=== PATIENT | male | born 2000 | race Asian ===

== ENCOUNTER 2020-01-04 02:03 | Emergency (ER) | payer OTHER ==
[2020-01-04 02:35] LABS: Influenza A Molecular Negative (Negative); Influenza B Molecular Negative (Negative)
[2020-01-04] MEDS ORDERED: NS 0.9% 1000 ML** 1,000 ML IV ONE (02:45)
[2020-01-04] MEDS ORDERED: Ondansetron INJ* 2 MG/ML VIAL IV ONE (02:45)
[2020-01-04] MEDS ORDERED: Pantoprazole IV* 40 MG IV ONE (02:47)
[2020-01-04 04:22] LABS: ABS Lymphocytes 0.5 10^3/ul (1.0-4.8); ABS Monocytes 0.3 10^3/ul (0-0.8); ABS Neutrophils 8.2 10^3/ul (1.5-7.7); Eosinophil % 0.2 %; Hematocrit 45 % (42-52); Hemoglobin 15.8 g/dL (14.0-18.0); Lymphocyte % 5.4 %; Mean Corpuscular HGB Conc 35 g/dL (31-36); Mean Corpuscular Hemoglobin 30 pg (27-31); Mean Corpuscular Volume 86 fL (80-94); Mean Platelet Volume 8.3 fL (7.4-10.4); Platelet Count 199 10^3/uL (150-450); Red Blood Count 5.26 10^6 /uL (4.18-5.48); Red Cell Distribution Width 13 % (10-15)
[2020-01-04 04:39] LABS: Albumin 4.4 g/dL (3.2-5.2); Albumin/Globulin Ratio 1.7 (1-3); BUN/Creatinine Ratio 18.9 (8-20); C Reactive Protein 1.77 mg/L (<8.01); Calcium 9.4 mg/dL (8.6-10.3); EGFR African American 131.5 (>60); EGFR Non-African American 108.7 (>60); Globulin 2.6 g/dL (2-4); Potassium 3.8 mmol/L (3.5-5.0); Total Bilirubin 0.8 mg/dL (0.2-1.0)
[2020-01-04 04:56] VITALS: BP 117/63
--- NOTE | 2020-01-04 05:04 | ED ---
Complex/Multi-Sys Presentation - HPI Summary HPI Summary: Patient is a 19 y/o M presenting to [facility] with complaints of N/V, fever, mild abdominal pain, and fatigue. It is reported that the patient experienced onset of vomiting around 2100 01/03/20; remainder of Sx subsequently onset afterwards. He denies diarrhea and coughing. No known sick contacts reported. He does note having a similar episode two years ago after eating sea food. Patient states that he did not have sea food tonight but does note that he had spicy food, which is atypical for him. No PMHx, daily medications, PSHx, drug allergies and tobacco, alcohol, and substance usage reported. Home medications and allergies are reviewed. - History Of Current Complaint Chief Complaint: EDFluSymptoms Time Seen by Provider: 01/04/20 02:34 Hx Obtained From: Patient Onset/Duration: Lasting Hours, Still Present Timing: Hours Severity Currently: Mild Location: Pain At: - abdomen Associated Signs And Symptoms: Positive: Nausea, Vomiting, Abdominal Pain, Fever , Other - positive - fatigue. Negative: Cough, Diarrhea - Allergies/Home Medications Allergies/Adverse Reactions: Allergies Allergy/AdvReac Type Severity Reaction Status Date / Time No Known Allergies Allergy Verified 01/04/20 02:07 Home Medications: Home Medications Ondansetron TAB* [Zofran 4 MG Tab*] 4 mg PO Q6H PRN #12 tab 01/04/20 [Rx] PMH/Surg Hx/FS Hx/Imm Hx Endocrine/Hematology History: Denies: Hx Diabetes Cardiovascular History: Denies: Hx Hypertension Infectious Disease History: No Infectious Disease History: Denies: Traveled Outside the [place] in Last 30 Days - Family History Known Family History: Negative: Diabetes - Social History Alcohol Use: None Substance Use Type: Reports: None Smoking Status (MU): Never Smoked Tobacco - Additional Comments History Additional Comments: No PHMx No PSHx Review of Systems Positive: Fever Negative: Cough Positive: Abdominal Pain, Vomiting, Nausea. Negative: Diarrhea All Other Systems Reviewed And Are Negative: Yes Physical Exam - Summary Physical Exam Summary: General: Well-developed, Well-nourished male. Mildly Ill-Appearing. HEENT: Normocephalic, Atraumatic. Eyes: Conjuctiva normal, PERRL. Oropharynx: Clear, mucous membranes dry, (-) exudates. Neck: Soft, FROM, (-) lymphadenopathy, (-) thyromegaly, (-) JVD. Cardiovascular: Normal sinus rhythm, (-) murmur. Lungs: Clear to auscultation bilaterally (-) wheezes, (-) rales, (-) rhonchi. Abdomen: Soft, non-tender, non-distended, (-) organomegaly, normal bowel sounds. Back: (-) CVA tenderness Extremities: No edema. Skin: Warm, dry, (-) rash. Neuro: Alert and oriented x3, moves all extremities equally. No ataxia. No gait disturbance. No sensory deficit. Normal strength, normal sensation. Psychiatric: Mood normal, affect normal. Triage Information Reviewed: Yes Vital Signs On Initial Exam: Initial Vitals Temp Pulse Resp BP Pulse Ox 101.1 F 92 15 119/78 95 01/04/20 02:04 01/04/20 02:04 01/04/20 02:04 01/04/20 02:04 01/04/20 02:04 Vital Signs Reviewed: Yes Procedures - Sedation Patient Received Moderate/Deep Sedation with Procedure: No Diagnostics - Vital Signs Vital Signs Temp Pulse Resp BP Pulse Ox 01/04/20 04:55 100.5 F 75 18 117/63 97 01/04/20 04:17 81 118/67 97 01/04/20 02:04 101.1 F 92 15 119/78 95 - Laboratory Lab Results: Lab Results 01/04/20 01/04/20 01/04/20 Range/Units 02:11 04:11 04:11 WBC 9.0 (3.5-10.8) 10^3/uL RBC 5.26 (4.18-5.48) 10^6 /uL Hgb 15.8 (14.0-18.0) g/dL Hct 45 (42-52) % MCV 86 (80-94) fL MCH 30 (27-31) pg MCHC 35 (31-36) g/dL RDW 13 (10-15) % Plt Count 199 (150-450) 10^3/uL MPV 8.3 (7.4-10.4) fL Neut % (Auto) 91.0 % Lymph % (Auto) 5.4 % [place] % (Auto) 3.2 % Eos % (Auto) 0.2 % Baso % (Auto) 0.2 % Absolute Neuts (auto) 8.2 H (1.5-7.7) 10^3/ul Absolute Lymphs (auto) 0.5 L (1.0-4.8) 10^3/ul Absolute Monos (auto) 0.3 (0-0.8) 10^3/ul Absolute Eos (auto) 0.0 (0-0.6) 10^3/ul Absolute Basos (auto) 0.0 (0-0.2) 10^3/ul Absolute Nucleated RBC 0.0 10^3/ul Nucleated RBC % 0.0 Sodium 137 (135-145) mmol/L Potassium 3.8 (3.5-5.0) mmol/L Chloride 103 (101-111) mmol/L Carbon Dioxide 27 (22-32) mmol/L Anion Gap 7 (2-11) mmol/L BUN 17 (6-24) mg/dL Creatinine 0.90 (0.67-1.17) mg/dL Est GFR ( Amer) 131.5 (>60) Est GFR (Non-Af Amer) 108.7 (>60) BUN/Creatinine Ratio 18.9 (8-20) Glucose 117 H (70-100) mg/dL Lactic Acid (0.5-2.0) mmol/L Calcium 9.4 (8.6-10.3) mg/dL Total Bilirubin 0.80 (0.2-1.0) mg/dL AST 22 (13-39) U/L ALT 16 (7-52) U/L Alkaline Phosphatase 81 (34-104) U/L C-Reactive Protein 1.77 (<8.01) mg/L Total Protein 7.0 (6.4-8.9) g/dL Albumin 4.4 (3.2-5.2) g/dL Globulin 2.6 (2-4) g/dL Albumin/Globulin Ratio 1.7 (1-3) Influenza A (Rapid) Negative (Negative) Influenza B (Rapid) Negative (Negative) 01/04/20 Range/Units 04:11 WBC (3.5-10.8) 10^3/uL RBC (4.18-5.48) 10^6 /uL Hgb (14.0-18.0) g/dL Hct (42-52) % MCV (80-94) fL MCH (27-31) pg MCHC (31-36) g/dL RDW (10-15) % Plt Count (150-450) 10^3/uL MPV (7.4-10.4) fL Neut % (Auto) % Lymph % (Auto) % [place] % (Auto) % Eos % (Auto) % Baso % (Auto) % Absolute Neuts (auto) (1.5-7.7) 10^3/ul Absolute Lymphs (auto) (1.0-4.8) 10^3/ul Absolute Monos (auto) (0-0.8) 10^3/ul Absolute Eos (auto) (0-0.6) 10^3/ul Absolute Basos (auto) (0-0.2) 10^3/ul Absolute Nucleated RBC 10^3/ul Nucleated RBC % Sodium (135-145) mmol/L Potassium (3.5-5.0) mmol/L Chloride (101-111) mmol/L Carbon Dioxide (22-32) mmol/L Anion Gap (2-11) mmol/L BUN (6-24) mg/dL Creatinine (0.67-1.17) mg/dL Est GFR ( Amer) (>60) Est GFR (Non-Af Amer) (>60) BUN/Creatinine Ratio (8-20) Glucose (70-100) mg/dL Lactic Acid 0.9 (0.5-2.0) mmol/L Calcium (8.6-10.3) mg/dL Total Bilirubin (0.2-1.0) mg/dL AST (13-39) U/L ALT (7-52) U/L Alkaline Phosphatase (34-104) U/L C-Reactive Protein (<8.01) mg/L Total Protein (6.4-8.9) g/dL Albumin (3.2-5.2) g/dL Globulin (2-4) g/dL Albumin/Globulin Ratio (1-3) Influenza A (Rapid) (Negative) Influenza B (Rapid) (Negative) Result Diagrams: 01/04/20 04:11 01/04/20 04:11 Lab Statement: Any lab studies that have been ordered have been reviewed, and results considered in the medical decision making process. Complex Multi-Symp Course/Dx Course Of Treatment: 19-year-old male presents from home with vomiting. he states he has been vomiting all day today. Also with abdominal discomfort mostly in the epigastric region. Feels feverish and achy. Tired. Patient is currently going to college. No known ill contacts. No diarrhea. Patient states he had a similar reaction a couple years ago to seafood. Patient is mildly ill appearing on exam. Mild epigastric tenderness to palpation. laboratories demonstrate negative flu swabs. Essentially normal CBC and CMP. Given IV fluids, Zofran and Protonix. significant improvement in symptoms. Patient discharged home. Zofran prescription called in. Advised sips of clear fluid and rest. Back to school on , note given. Follow up with PCP. Follow-up sooner for any worsening symptoms. - Diagnoses Provider Diagnoses: Viral syndrome Discharge ED - Sign-Out/Discharge Documenting (check all that apply): Patient Departure - discharge - Discharge Plan Condition: Stable Disposition: HOME Prescriptions: Ondansetron TAB* [Zofran 4 MG Tab*] 4 mg PO Q6H PRN #12 tab PRN Reason: Nausea Patient Education Materials: Viral Syndrome (ED) Forms: *School Release Referrals: [facility] - Jd PRINCE [Primary Care Provider] - 3 Days Additional Instructions: PLEASE RETURN TO ED FOR ANY NEW OR WORSENING SYMPTOMS. PLEASE FOLLOW UP WITH YOUR PRIMARY CARE PHYSICIAN WITHIN THREE DAYS. - Billing Disposition and Condition Condition: STABLE Disposition: Home - Attestation Statements Document Initiated by Evan: Yes Documenting Scribe: BRITANY YANEZ Provider For Whom Evan is Documenting (Include Credential): GOMEZ QUEEN MD Scribe Attestation: BRITANY Arriaza, scribed for GOMEZ QUEEN MD on 01/04/20 at 0643. Scribe Documentation Reviewed: Yes Provider Attestation: The documentation as recorded by the BRITANY suarez accurately reflects the service I personally performed and the decisions made by me, GOMEZ QUEEN MD Status of Scribe Document: Viewed
== END 2020-01-04 04:55 | disposition home or self-care (01) ==
LOC: ED 02:03
DX: B34.9 Viral infection, unspecified (principal); R11.2 Nausea with vomiting, unspecified; R10.9 Unspecified abdominal pain
CPT/HCPCS: 36415; 80053; 83605; 85025; 86140; 96361; 96374; 96375; 99282; J2405